=== PATIENT | male | born 1990 | race Caucasian/White ===

== ENCOUNTER 2017-10-11 09:57 | Emergency (ER) | payer OTHER ==
[~2017-10-11] VITALS: Ht 193 cm; Wt 81.7 kg
[~2017-10-11 09:57] MED LIST: ALPRAZOLAM; AZITHROMYCIN 2250 MG PO; CELEXA; CLONAZEPAM; IBUPROFEN 800800 M1 PO; LORTAB 5 MG/5001 TA1 PO; NOHOMEMEDICATIONS; PREDNISONE 20 M20 M1 PO; PROMETHAZINE-D120 ML PO; SEROQUEL300 MG PO
[2017-10-11] MEDS ORDERED: TRAZODONE 150150 M1 PO (10:02)
[2017-10-11 10:29] LABS: ABSOLUTE LYMPHOCYTES 1.1 thou/uL (0.8-5.3); ABSOLUTE MONOCYTES 0.6 thou/uL (0.0-1.2); ABSOLUTE NEUTROPHILS 7.3 thou/uL (1.6-8.1); BASOPHILS 0.4 %; EOSINOPHILS 0.1 %; HEMATOCRIT 43.7 % (42.0-52.0); HEMOGLOBIN 14.7 gm/dL (14.0-18.0); LYMPHOCYTES 12.2 %; MCH 28.1 pg (26.0-34.0); MCHC 33.6 g/dL (28.0-37.0); MCV 83.5 fL (80.0-100.0); MONOCYTES 6.9 %; NUCLEATED RBCS 0 /100WBC; PLATELET COUNT* 281 thou/uL (150-400); POLYS 80.4 %; RBC 5.23 mil/uL (4.50-6.00); RDW-CV 14.9 % (10.5-14.5); WBC 9.1 thou/uL (4.0-11.0)
[2017-10-11 10:43] LABS: CALCIUM 9.3 mg/dL (8.5-10.1); CREATININE 0.8 mg/dL (0.6-1.3); POTASSIUM 3.9 mmol/L (3.5-5.1)
[2017-10-11 10:48] LABS: ALBUMIN 4.1 g/dL (3.4-5.0); TOTAL BILIRUBIN 0.8 mg/dL (<0.1-1.0)
[2017-10-11 13:01] VITALS: BP 116/74
== END 2017-10-11 13:01 | disposition home or self-care (01) ==
LOC: M.ERS 09:57
PROVIDERS: Nurse Practitioner Family
DX: A08.4 Viral intestinal infection, unspecified (principal); F17.200 Nicotine dependence, unspecified, uncomplicated